=== PATIENT | male | born 1980 | race Caucasian/White ===

== ENCOUNTER 2019-08-31 22:37 | Outpatient (CLI) | payer OTHER | END 2019-08-31 22:38 | disposition short-term general hospital (02) | LOC: EMS 22:37 | PROVIDERS: ATTEND Surgery | DX: S01.81XA Laceration without foreign body of other part of head, initial encounter (principal); R11.2 Nausea with vomiting, unspecified; W19.XXXA Unspecified fall, initial encounter; Y92.009 Unspecified place in unspecified non-institutional (private) residence as the place of occurrence of the external cause | CPT/HCPCS: A0425; A0427 ==

== ENCOUNTER 2020-03-30 12:27 | Emergency (ER) | payer OTHER ==
[2020-03-30] MEDS ORDERED: TETANUS/DIPHTHERIA/PERTUSSIS 0.5 ML SYRINGE IM ONE (13:03)
[2020-03-30] MEDS ORDERED: BUPIVACAINE 0.5% PF 10 ML VIAL SUBQ STA (13:03)
[2020-03-30] MEDS ORDERED: BUFFERED LIDOCAINE 10 ML SYRINGE SUBQ STA (13:03)
[2020-03-30] MEDS ORDERED: cephALEXin 250 MG CAPSULE PO STA (13:03)
--- NOTE | 2020-03-30 13:04 | ED Physician Documentation ---
PD HPI UPPER EXT INJURY - Stated complaint Stated Complaint: L HAND INJURY - Chief complaint Chief Complaint: Laceration - History obtained from History obtained from: Patient - History of Present Illness Location: Left (39-year-old right-handed gentleman was working at home cutting a tree the chainsaw slipped and he has multiple lacerations on the left hand. Tetanus is not up-to-date. No other injuries.) Review of Systems Constitutional: reports: Reviewed and negative Eyes: reports: Reviewed and negative Ears: reports: Reviewed and negative Nose: reports: Reviewed and negative Throat: reports: Reviewed and negative Cardiac: reports: Reviewed and negative Respiratory: reports: Reviewed and negative PD PAST MEDICAL HISTORY - Past Medical History Past Medical History: No - Past Surgical History Past Surgical History: Yes Ortho: Rotator cuff repair, Arthroscopic surgery - Present Medications Home Medications: Ambulatory Orders Medication Instructions Recorded Confirmed Acetaminophen/Cod 300/30 [Tylenol 1 each PO Q4-6H PRN #10 tablet 03/30/20 #3] Cephalexin [Keflex] 500 mg PO Q6H #28 capsule 03/30/20 Omeprazole 20 mg PO DAILY 03/30/20 03/30/20 PARoxetine [Paxil] 40 mg PO DAILY 03/30/20 03/30/20 - Allergies Allergies/Adverse Reactions: Allergies Allergy/AdvReac Type Severity Reaction Status Date / Time ibuprofen [From Motrin] AdvReac Emesis Verified 03/30/20 12:47 - Social History Does the pt smoke?: No Smoking Status: Never smoker Does the pt drink ETOH?: Yes Does the pt have substance abuse?: No Substance Use and Type: Marijuana - Immunizations Immunizations are current?: No - POLST Patient has POLST: No PD ED PE NORMAL - Vitals Vital signs reviewed: Yes - General General: Alert and oriented X 3, No acute distress - HEENT HEENT: PERRL, EOMI - Extremities Extremities: Other (On the fifth finger palmar side there is a little neck that does not need any specific intervention. On the palmar side of the left third and fourth fingers there are complex stellate lacerations mostly over the first and second phalanges. No distal neurovascular compromise.) - Neuro Neuro: Alert and oriented X 3, Normal speech Results - Vitals Vitals: Vital Signs - 24 hr 03/30/20 03/30/20 12:47 13:19 Temperature 36.7 C Heart Rate 77 71 Respiratory 18 16 Rate Blood Pressure 145/83 H 132/88 H O2 Saturation 96 99 Oxygen O2 Source Room air Procedures - Laceration (location) R 3rd/4th fingers Length in cm: 8 Wound type: Stellate, Irregular, Contaminated Neurovascular status: Sensory intact, Motor intact, Vascular intact Tendon involvement: Tendon intact (The tendon sheath was visible in the third finger but not frayed) Anesthesia: Lidocaine 1%, Marcaine 0.5%, With bicarb Wound Preparation: Hibiclens, Irrigated copiously NS, Debrided extensively (There was foreign material in the wounds and it was debrided extensively using a scrub as well as sharp debridement. There was also some small amounts of fat that had to be sharply debrided.), Wound explored, To the base, Wound edges modified, Multiple flaps aligned Skin layer closure: Nylon, Size #-0 - enter number (4-0), Sutures - enter # (24, A total of 17 sutures in the third finger, and 7 sutures in the fourth finger. Also there were some shallow areas and flaps that were closed with Dermabond.) Other: Tetanus booster given Complexity: Intermediate - Splint (location) LUE Splint applied by: Tech Type of splint: Short arm, Volar cock up Other: Patient tolerated well, No complications, Neurovascular intact Departure - Departure Disposition: 01 Home, Self Care Clinical Impression: Hand laceration Qualifiers: Encounter type: initial encounter Foreign body presence: without foreign body Laterality: left Qualified Code(s): S61.412A - Laceration without foreign body of left hand, initial encounter Condition: Good Record reviewed to determine appropriate education?: Yes Instructions: ED Laceration Hand Prescriptions: Cephalexin [Keflex] 500 mg PO Q6H #28 capsule Acetaminophen/Cod 300/30 [Tylenol #3] 1 each PO Q4-6H PRN #10 tablet PRN Reason: Pain Comments: Keep the splint on and dry, do not remove it except for wound check for probably the first week. Schedule a wound check with your doctor in 3 to 4 days time. Then plan to have the sutures out in approximately 2 weeks time. After the first week you can wash briefly with soap and water and then loosely reapply the splint. Elevate is much as possible. Forms: Activity restrictions
[2020-03-30 14:20] VITALS: BP 135/80
== END 2020-03-30 14:30 | disposition home or self-care (01) ==
LOC: ED 12:27
DX: S61.223A Laceration with foreign body of left middle finger without damage to nail, initial encounter (principal); S61.225A Laceration with foreign body of left ring finger without damage to nail, initial encounter; W29.3XXA Contact with powered garden and outdoor hand tools and machinery, initial encounter; Y93.H2 Activity, gardening and landscaping; Y92.009 Unspecified place in unspecified non-institutional (private) residence as the place of occurrence of the external cause; Z23 Encounter for immunization
CPT/HCPCS: 12044; 90471; 90715; 99283; A9270

== ENCOUNTER 2020-12-20 10:47 | Outpatient (CLI) | payer OTHER | END 2020-12-20 23:59 | disposition home or self-care (01) | LOC: LAB.N 10:47 | PROVIDERS: ATTEND Family Medicine | DX: J34.89 Other specified disorders of nose and nasal sinuses (principal); Z20.822 Contact with and (suspected) exposure to COVID-19 ==

== ENCOUNTER 2021-03-19 10:24 | Outpatient (CLI) | payer OTHER ==
[2021-03-19 11:21] VITALS: BP 148/99
--- NOTE | 2021-03-19 11:21 | SLEEP CARE CONSULTATION ---
Information from patient questionnaire entered by Tessa Felix MA. I have reviewed and concur with the information entered by Tessa Felix MA. This document represents the service I personally performed and the decisions made by , Nel Otero ARNP. History of Present Illness Service Date and Time: 03/19/2021 1024 Reason for Visit: New patient Chief Complaint: reports: Insomnia, Unrefreshed sleep, Snoring, Observed pauses in breathing, Fatigue Date of Onset: years Usual bedtime: 2200 Time it takes to fall asleep: 1 to 3 hours Snores at night: Yes Observed to quit breathing while asleep: Yes Sleeps alone due to snoring: Yes (sometimes) Number of times waking at night: 1-3 times Reasons for waking at night: reports: Choking, Snoring, Gasping for air, Pain, Bathroom Toss, Turn, or Twitch while sleeping: Yes Recalls having dreams: No Usually gets out of bed at: 0530 to 0600 Feels refreshed in the morning: Yes (sometimes) Morning headache: Yes (sometimes; 1 times a week, last till about 1000) Sleepy or fatigued during the day: Yes Ever fallen asleep while driving: No Takes day naps: Yes (sometimes; normally not, maybe once a week) Dreams during day naps: No Prior sleep studies: No Additional HPI information: I had the pleasure of seeing OSEAS CAMARA today regarding the possibility of him having a sleep disorder. His current complaints are insomnia, fatigue, snoring and unrefreshed sleep. He was referred because of his daytime fatigue. He states that it takes 1-3 hours to fall asleep. He will sometimes have many thoughts but other times he is just "staring" at the wall. He has been told by his that he snores loudly and she will sometimes go in other room to sleep. She has told him that he has pauses in breathing when sleeping. He normally wakes up feeling tired and is tired throughout the day. He has been told he talks in his sleep occasionally. - Parasomnia Symptoms Ever been unable to move upon waking from sleep: No Walks in sleep: No Talks in sleep: Yes (sometimes) Ever acted out dreams in sleep: No Ever felt weak in the knees when startled or emotional: No Bothered by creepy, crawly, restless sensations in legs: No Problems with memory or concentration: Yes (both, little bit) Subjective Initial [place] Sleepiness Scale score: 15 (in 2020) Past Medical History Past Medical History: reports: Arthritis, Anxiety, GERD, Other (multiple sclerosis) Social History The patient's occupation is a RE. Patient is and lives in [place]. Have you smoked in the past 12 months: No Alcohol use: Yes Alcohol amount and frequency: 1 x weekly Caffeine use: Yes Caffeine amount and frequency: 2 cups daily Family History Family history of sleep disordered breathing: No Family Hx Sleep Apnea: Mother: Snoring, Sibling: Snoring Allergies and Home Medications Known drug allergies: Yes (Motrin, PT can not take Motrin at all.) Home medication list reviewed: Yes Allergy and home medication list: Paroxetine Nexium, generic Review of Systems Cardiovascular: denies: high blood pressure Neurological: denies: headaches Psychiatric: reports: anxiety Ear/Nose/Throat: reports: wisdom teeth removed. denies: injury to nose, tonsillectomy Endocrine: denies: thyroid disease Musculoskeletal: reports: joint pain, back pain Immunologic: reports: allergies to food or environment (possible seasonal allergies) Physical Exam Vital signs obtained and entered by: Ricardo FELIX CMA AAMARY Blood Pressure: 148/99 (right) Cuff size: wrist Heart Rate: 55 O2 Saturation: 98 (with mask) Height: 6 ft Weight: 240 lb (with boots) Body Mass Index: 32.5 BMI Classification: Obese Neck circumference: 17.85 (inches) Mouth and throat: narrow oropharynx Soft palate: long Hard palate: normal Uvula: normal Uvula visualization: 50% Mallampati Class II Tongue: enlarged in size with teeth simmons on lateral edges Tonsils: small Neck: normal w/o lymphadenopathy or thyromegaly Heart: regular rate and rhythm Lungs: clear bilaterally Impression and Plan 1. Suspected Obstructive Sleep Apnea-Hypopnea Syndrome, as suggested by a history of loud and irregular snoring, observed cessation of breath while asleep, gasping or choking in sleep, morning headache, frequent awakening during the night, unrefreshed sleep, cognitive impairment, and excessive daytime sleepi ness. Narrow oropharynx and obesity are common predisposing factors for obstructive sleep apnea-hypopnea syndrome. I recommend proceeding to polysomnography to confirm the diagnosis and to assess severity. If the patient has significant sleep disordered breathing, a manual CPAP titration study will also be performed to find the optimal treatment pressure. I informed the patient of what the sleep studies involve and after some discussion, obtained agreement to proceed. The pathophysiology of obstructive sleep apnea-hypopnea syndrome was discussed with the patient and health risks of cardiovascular and cerebrovascular disease if not treated. [facility] brochure for obstructive sleep apnea-hypopnea syndrome given and reviewed. Risks of drowsy driving discussed in detail and patient advised to avoid long distance driving and to boat puller at the first sign of drowsiness. Patient agreed to plan. * Schedule polysomnography +- manual CPAP titration study and return in 1-2 weeks after the study to discuss result and initiate therapy. * Avoid long distance driving or driving when feeling sleepy. * Avoid alcohol, sedative and muscle relaxant around bedtime. * Attempt to lose weight. * Review instructions provided by trained office staff on how to prepare for the sleep study. * Return for follow-up after sleep study completed. Counseling Topics: Weight loss health impact Visit Type: In Office Time Spent with Patient (minutes): 23 Provider Statement: I spent 100% of the Face to Face Visit with the patient with greater than 50% spent counseling the patient and coordination of care.
== END 2021-03-19 10:25 | disposition home or self-care (01) ==
LOC: SC 10:24
PROVIDERS: ATTEND Nurse Practitioner Family
DX: G47.10 Hypersomnia, unspecified (principal); G47.8 Other sleep disorders; R51.9 Headache, unspecified; R06.81 Apnea, not elsewhere classified; R06.83 Snoring; E66.9 Obesity, unspecified; Z68.32 Body mass index [BMI] 32.0-32.9, adult
CPT/HCPCS: 99202; 99212

== ENCOUNTER 2021-03-20 14:23 | Outpatient (CLI) | payer OTHER | END 2021-03-20 14:24 | disposition home or self-care (01) | LOC: SC 14:23 | PROVIDERS: ATTEND Nurse Practitioner Family | DX: G47.33 Obstructive sleep apnea (adult) (pediatric) (principal); R09.02 Hypoxemia | CPT/HCPCS: 95806 ==

== ENCOUNTER 2021-04-02 13:54 | Outpatient (CLI) | payer OTHER ==
[2021-04-02 14:28] VITALS: BP 148/93
--- NOTE | 2021-04-02 14:28 | SLEEP CARE CONSULTATION ---
Information from patient questionnaire entered by Tessa Leblanc MA. I have reviewed and concur with the information entered by Tessa Leblanc MA. This document represents the service I personally performed and the decisions made by , Nel Otero ARNP. History of Present Illness Service Date and Time: 04/02/2021 1354 Initial [place] Sleepiness Scale score: 15 (in 2020) Current [place] Sleepiness Scale score: 12 (2020) Additional HPI information: OSEAS CAMARA returns for follow up and results of the recently performed home sleep study. I explained the pathophysiology behind obstructive sleep apnea. We then spent quite a bit of time discussing different treatment options. For mild obstructive sleep apnea, surgery and oral appliance are alternatives to nasal CPAP therapy but in moderate or severe cases, nasal CPAP is the most effective and reliable treatment. Because apnea is primarily in supine position, then positional management therapy could be effective. Methods discussed such as positioning with pillows, using a T-shirt with tennis balls in the back, and shown commercial products that have a pillow format on back to prevent supine sleep. I reviewed the impact of weight changes on sleep apnea and strongly recommended losing weight. After some discussion, the patient opted to go with the nasal CPAP therapy. Nasal autoCPAP set at 4-15 cmH20 will be ordered with rationale explained. A manual titration study will be ordered if unable to find optimal pressure with office adjustments. I explained how CPAP machine works and what to expect when using the machine. Using CPAP every night in order to get used to it was emphasized. Patient advised to put CPAP mask on before getting into bed so as not to fall asleep without CPAP. To assist acclimation to CPAP use, it could also be used for a short time during day while reading or watching TV. The patient was instructed to call the CPAP supplier to discuss any mechanical problem that may occur. If the mask given is uncomfortable or is difficult to keep on through the night even with adjustment, contact the CPAP supplier as many will replace with another mask style if notified before 30 days. If snoring or perceives is not getting enough air or too much air from the machine, notify this office. [facility] patient education PAP tips reviewed and given to patient. Patient counseled not drink alcohol less than 4 hours before bedtime as it can increase snoring and apnea. Patient was cautioned about risks of drowsy driving until sleepiness symptoms resolve. Sleep Study - Results Prior sleep studies: No Polysomnography/Home Sleep Study results: Physician Impression: The quality of the study is good. The length of the study is adequate (> 240 minutes). Please also see the tabulated and graphic data. 1. Obstructive Sleep Apnea-Hypopnea (ICD-10 G47.33), mild, with an AHI of 5.8/hr and ivana SaO2 of 81%. During the study, the patient had 17 apneas (17 obstructive, 0 central, 0 mixed) and 39 hypopneas. The longest episode lasted 57.0 seconds. The respiratory events occurred almost exclusively during supine sleep (supine AHI was 16.5 and non-supine, 3.63). 2. Hypoxemia (ICD-10 R09.02), mild, with the lowest oxygen saturation of 81 % and 18.6 minutes with SaO2 under 90%. Baseline oxygen saturation was normal (Average oxygen saturation was 93%) Allergies and Home Medications Known drug allergies: No Drug allergies reviewed: Yes Home medication list reviewed: Yes (no changes) Review of Systems Review of systems same as previous: Yes (no changes) Physical Exam Vital signs obtained and entered by: DAMION BROOKS Blood Pressure: 148/93 (RIGHT) Cuff size: wrist Heart Rate: 69 O2 Saturation: 96 (CLOTH MASK) Height: 6 ft Weight: 529 lb 1.75 oz (W/O CLOTHES) Body Mass Index: 71.7 BMI Classification: Morbidly Obese Impression and Plan 1. Obstructive Sleep Apnea-Hypopnea Syndrome, mild, with lowest oxygen saturation of 81%. Obviously this is the cause of the patients symptoms of unrefreshed sleep, and excessive daytime sleepiness. Positive pressure therapy could benefit anxiety, gastric reflux and MS. As mentioned above, the patient will be started on nasal autoCPAP therapy with pressure set at 4-15 cmH2O. Compliance guidelines also reviewed. A copy of compliance guidelines will be given for reference at check out. Because the apnea is more severe supine, I instructed to avoid sleeping supine using pillow positioning until able to start CPAP use. 2. Hypoxemia, mild, with the lowest oxygen saturation of 81 % and 18.6 minutes with SaO2 under 90%. His baseline oxygen saturation was normal with an average oxygen saturation of 93%. * Nasal auto CPAP therapy, pressure at 4-15 cm H2O. * Attempt to lose weight. * Avoid alcohol consumption near bedtime. * Avoid supine sleep until using CPAP. * The patient is again cautioned about driving until sleepiness completely resolves. * Return one month after CPAP obtained. I will assess response to therapy and compliance at that time. Counseling Topics: Weight loss health impact Visit Type: In Office Time Spent with Patient (minutes): 20 Provider Statement: I spent 100% of the Face to Face Visit with the patient with greater than 50% spent counseling the patient and coordination of care.
== END 2021-04-02 13:55 | disposition home or self-care (01) ==
LOC: SC 13:54
PROVIDERS: ATTEND Nurse Practitioner Family
DX: G47.33 Obstructive sleep apnea (adult) (pediatric) (principal); R09.02 Hypoxemia; E66.01 Morbid (severe) obesity due to excess calories; Z68.45 Body mass index [BMI] 70 or greater, adult
CPT/HCPCS: 99212; 99213